=== PATIENT | female | born 1960 | race African-American/Black ===

== ENCOUNTER 2017-11-19 14:57 | Outpatient (CLI) | payer OTHER ==
--- NOTE | 2017-12-05 15:56 | MMO ---
BILATERAL SCREENING MAMMOGRAM: History: Screening. Comparison: None available. This is being interpreted as a baseline exam. FINDINGS: Bilateral CC and ML mammograms performed with computer aided detection. Benign calcifications left breast. No suspicious mass, architectural distortion or microcalcification s. IMPRESSION: BIRADS 2 - benign findings. Continued screening is recommended. POS: [facility]
== END 2017-11-19 14:58 | disposition home or self-care (01) ==
LOC: SCSMAMMO 14:57
PROVIDERS: ATTEND Family Medicine
DX: Z12.31 Encounter for screening mammogram for malignant neoplasm of breast (principal)
CPT/HCPCS: 77067

== ENCOUNTER 2021-10-01 20:32 | Emergency (ER) | payer BC, OTHER | END 2021-10-01 22:56 | disposition home or self-care (01) | LOC: ERS 20:32 | DX: T59.91XA Toxic effect of unspecified gases, fumes and vapors, accidental (unintentional), initial encounter (principal) | CPT/HCPCS: 71045; 93005 ==

== ENCOUNTER 2022-02-22 14:28 | Emergency (ER) | payer BC ==
[~2022-02-22 14:28] MED LIST: Iopamidol-370 76% 500 ML 1 ML ONE
[2022-02-22] MEDS ORDERED: Ketorolac Tromethamine 30 MG/ML VIAL ONE (15:12)
[2022-02-22 15:13] LABS: #Eosinphils 0.1 thou/uL (0.0-0.7); #Lymphocytes 2.2 thou/uL (1.20-3.40); #Monocytes 0.6 thou/uL (0.11-0.59); %Basophils 0.3 % (0.0-1.0); %Eosinophils 1.1 % (0.0-10.0); %Monocytes 7.4 % (0.0-10.0); %Neutrophils 63.2 % (42.0-75.0); Hemoglobin 13.8 g/dL (12.0-16.0); Mean Corpuscular HGB CONC 32.5 g/dL (32.0-36.0); Mean Corpuscular Hemoglobin 28.6 pg (27.0-31.0); Platelet Count 253 10x3/uL (130-400); RBC Distribution Width 13.4 % (11.5-14.5); Red Blood Cell (RBC) Count 4.83 mill/uL (4.20-5.40); White Blood Cell (WBC) Count 7.9 10x3/uL (4.8-10.8)
[2022-02-22 15:35] LABS: ALT (SGPT) 17 U/L (8-55); AST (SGOT) 15 U/L (5-34); Albumin 4.1 g/dL (3.5-5.0); Alkaline Phosphatase 97 U/L (40-110); Anion Gap 10 mmol/L (10-20); BUN (Urea Nitrogen) 17 mg/dL (9.8-20.1); Bilirubin, Total 0.3 mg/dL (0.2-1.2); Calc. Creatinine Clearance 0 mL/min (70-130); Calcium 9.6 mg/dL (7.8-10.44); Carbon Dioxide 27 mmol/L (22-29); Chloride 108 mmol/L (98-107); Estimated GFR 58; Globulin 3.2 g/dL (2.4-3.5); Glucose 150 mg/dL (70-105); Lipase 55 U/L (8-78); Potassium 3.9 mmol/L (3.5-5.1); Protein, Total 7.3 g/dL (6.0-8.3); Sodium 141 mmol/L (136-145)
== END 2022-02-22 17:30 | disposition home or self-care (01) ==
LOC: ERS 14:28
DX: R07.89 Other chest pain (principal); I10 Essential (primary) hypertension; E78.00 Pure hypercholesterolemia, unspecified; Z79.899 Other long term (current) drug therapy
CPT/HCPCS: 71045; 71275; 74174; 80053; 83690; 84484; 85025; 93005; 96374; J1885; Q9967

== ENCOUNTER 2025-02-23 16:04 | Outpatient (CLI) | payer BC | END 2025-02-23 16:05 | disposition home or self-care (01) | LOC: SCSBT 16:04 | PROVIDERS: ATTEND Family Medicine | DX: Z78.0 Asymptomatic menopausal state (principal) | CPT/HCPCS: 77080 ==